=== PATIENT | female | born 1980 | race Two or more races ===

== ENCOUNTER 2021-11-20 12:00 | Inpatient (IN) | payer OTHER ==
[~2021-11-20] VITALS: Ht 152.4 cm; Wt 61.7 kg
[2021-11-20] MEDS ORDERED: TAPAZOLE5 MG PO (13:31)
== END 2021-11-26 16:02 | disposition home or self-care (01) | DRG 743 ==
LOC: OB/GYN 11-25 05:15 → O/R 11-25 05:15 → OB/GYN 11-25 10:38 → SURG 11-25 12:00 → OB/GYN 11-26 16:02
PROVIDERS: ADMIT Obstetrics & Gynecology; ATTEND Obstetrics & Gynecology
PROC: 0UT94ZZ Resection of Uterus, Percutaneous Endoscopic Approach (ICD-10-PCS; principal; 2021-11-25 14:15)
DX: N80.0 Endometriosis of uterus (principal); Z20.822 Contact with and (suspected) exposure to COVID-19

== ENCOUNTER 2022-09-22 07:26 | Day surgery (SDC) | payer OTHER ==
[~2022-09-22 07:26] MED LIST: TAPAZOLE5 MG PO
== END 2022-09-22 13:40 | disposition home or self-care (01) ==
LOC: AMB-ENDOS 07:26 → CIR.AMB 13:45
PROVIDERS: ATTEND Colon & Rectal Surgery
DX: K57.30 Diverticulosis of large intestine without perforation or abscess without bleeding (principal); K57.32 Diverticulitis of large intestine without perforation or abscess without bleeding; K64.8 Other hemorrhoids; R10.32 Left lower quadrant pain; Z88.1 Allergy status to other antibiotic agents